=== PATIENT | male | born 1985 | race Caucasian/White ===

== ENCOUNTER 2023-09-29 09:59 | Outpatient (CLI) | payer BC, SELFPAY | END 2023-09-29 10:00 | disposition home or self-care (01) | PROVIDERS: Visit Provider Family Medicine | DX: I10 Essential (primary) hypertension (principal); Z13.220 Encounter for screening for lipoid disorders | CPT/HCPCS: 80048; 80061 ==

== ENCOUNTER 2024-08-24 15:24 | Emergency (ER) | payer OTHER, SELFPAY ==
--- OUTSIDE RECORDS SUMMARY | 2024-08-24 15:26 | XMS_ITS | Clinical Summary ---
Author Organization [facility] Address [address] [place] [id number] Care Team Providers Care Parking Meter Attendant Name Role Phone Clinic, [facility] Allergies No known active allergies Medications metoprolol tartrate (LOPRESSOR) 25 mg tabletIndications:Par oxysmal supraventricular tachycardia (HC) Take 1 Tablet (25 mg) by mouth two times daily. 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 Gender Identity Not on file Sexual Orientation Not on file Last Filed Vital Signs Vital Sign Reading Time Taken Comments Blood Pressure 124/78 06/23/2022 1:23 PM JANITORIAL MANAGER Pulse 72 06/23/2022 1:59 PM JANITORIAL MANAGER Temperature 36.6 C (97.8 F) 06/23/2022 11:06 AM JANITORIAL MANAGER Respiratory Rate 18 06/23/2022 11:06 AM JANITORIAL MANAGER Oxygen Saturation 98% 06/23/2022 1:59 PM JANITORIAL MANAGER Inhaled Oxygen Concentration - - Weight 124.7 kg (275 lb) 06/23/2022 11:06 AM JANITORIAL MANAGER Height 198.1 cm (6' 6) 06/23/2022 11:06 AM JANITORIAL MANAGER Body Mass Index 31.78 06/23/2022 11:06 AM JANITORIAL MANAGER Plan of Treatment Health Maintenance Due Date Last Done Comments Tdap 1996 Depression screening for age 12+ 1997 HIV for age 15-65 2000 BMI (ht and wt on same day) for age 18+ 2003 Hepatitis C screening for ag e 18-79 2003 Tetanus booster 2005 Lipids for age 35-44 2020 ([place]) Influenza for age 9-49 02/18/2024 COVID-19 vaccine series (2023- season) 2024 Pneumococcal series for age 6-49 Aged Out No longer eligible based on patient's age to complete this topic Insurance [facility] Care Teams Parking Meter Attendant Relationship Specialty Start Date End Date [address] [address] PCP - General 06/22/22
[2024-08-24 15:30] VITALS: BP 154/85; PULSE 86; RESP 16; TEMP 36.2; O2SAT 98; BMI 33.5
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
--- OUTSIDE RECORDS SUMMARY | 2024-08-24 17:38 | XMS_ITS | Clinical Summary ---
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 Gender Identity Not on file Sexual Orientation Not on file Last Filed Vital Signs Vital Sign Reading Time Taken Comments Blood Pressure 124/78 06/23/2022 1:23 PM TRANSPORTATION EQUIPMENT PAINTER Pulse 72 06/23/2022 1:59 PM TRANSPORTATION EQUIPMENT PAINTER Temperature 36.6 C (97.8 F) 06/23/2022 11:06 AM TRANSPORTATION EQUIPMENT PAINTER Respiratory Rate 18 06/23/2022 11:06 AM TRANSPORTATION EQUIPMENT PAINTER Oxygen Saturation 98% 06/23/2022 1:59 PM TRANSPORTATION EQUIPMENT PAINTER Inhaled Oxygen Concentration - - Weight 124.7 kg (275 lb) 06/23/2022 11:06 AM TRANSPORTATION EQUIPMENT PAINTER Height 198.1 cm (6' 6) 06/23/2022 11:06 AM TRANSPORTATION EQUIPMENT PAINTER Body Mass Index 31.78 06/23/2022 11:06 AM TRANSPORTATION EQUIPMENT PAINTER Plan of Treatment Health Maintenance Due Date [...] patient's age to complete this topic Insurance [facility] Care Teams Part Time Receptionist Relationship Specialty Start Date End Date [address] [address] PCP - General 06/22/22
== END 2024-08-24 18:08 | disposition home or self-care (01) ==
PROVIDERS: Emergency Provider Family Medicine
DX: T23.202A Burn of second degree of left hand, unspecified site, initial encounter (principal); X10.2XXA Contact with fats and cooking oils, initial encounter
CPT/HCPCS: 99284